=== PATIENT | male | born 1960 | race African-American/Black ===

== ENCOUNTER 2022-04-15 12:30 | Inpatient (IN) | payer MEDICAID, OTHER ==
[~2022-04-15] VITALS: Ht 170.2 cm; Wt 225.2 kg
[2022-04-15 14:15] LABS: Basophils # (auto) 0.1 10 ^3/uL (0-0.2); Basophils % (auto) 0.6 % (0.0-2.0); Eosinophils # (auto) 0.2 10 ^3/uL (0-0.8); Eosinophils % (auto) 1.8 % (0.0-7.0); Hematocrit 35.3 % (41.0-53.0); Hemoglobin 11.8 g/dL (13.5-17.5); Lymphocytes # (auto) 1.3 10 ^3/uL (0.4-5.4); Lymphocytes % (auto) 13.3 % (10.0-50.0); Mean Corpuscular Hemoglobin 29.2 pg (28.0-32.0); Mean Corpuscular Hgb Conc. 33.4 g/dL (32.0-36.0); Mean Corpuscular Volume 87.5 fL (80.0-100.0); Monocytes # (auto) 0.6 10 ^3/uL (0-1.3); Monocytes % (auto) 6.2 % (0.0-12.0); Neutrophils # (auto) 7.9 10 ^3/uL (1.6-8.6); Neutrophils % (auto) 78.1 % (37.0-80.0); Red Blood Cells 4.04 10^6/uL (4.5-5.90); Red Cell Distribution Width 14.4 % (11.8-14.3); White Blood Cell 10.1 10^3/uL (4.4-10.8)
[2022-04-15 14:24] LABS: Albumin 2.6 g/dL (3.4-5.0); Calcium 9.1 mg/dL (8.5-10.1); Potassium 4.3 mmol/L (3.5-5.1)
[2022-04-15 14:26] LABS: BUN/Creatinine Ratio 14.7
[2022-04-15 14:29] LABS: Bilirubin, Total 0.3 mg/dL (0.2-1.0); Total Protein 8.2 g/dL (6.4-8.2)
[2022-04-15] MEDS ORDERED: VANCOMYCIN 1GM/250ML 250 ML IV ONE (19:00)
[2022-04-15] MEDS ORDERED: PIPERACILLIN-TAZOB 3.375GM 100 ML IV ONE (19:00)
[2022-04-15] MEDS ORDERED: SODIUM CHLORIDE 0.9% 1,000 ML IV ONE (19:45)
[2022-04-15] MEDS ORDERED: DEXTROSE (50%) 50ML SYRG IV PRN (19:45)
[2022-04-15 19:57] LABS: Cholesterol 156 mg/dL (< 200)
[2022-04-15 20:00] LABS: HDL Cholesterol 45 mg/dL (40-59); LDL Cholesterol 108 mg/dL (< 100); Triglycerides 93 mg/dL (< 150)
[2022-04-15] MEDS: InsuLIN REG 1unit/0.01ml Soln (100units/ml) SC SCH ×2 (23:52→23:58)
[2022-04-15] MEDS: ACCU-CHEK COMFORT CURVE STRIP VI SCH (23:52)
[2022-04-16] MEDS: MORPHINE SULFATE INJ 2 MG/ml SYRG IV PRN (00:27)
[2022-04-16] MEDS: CLINDAMYCIN 300MG IV 50 ML IV SCH ×4 (02:30→22:05)
[2022-04-16 04:54] LABS: Basophils # (auto) 0.1 10 ^3/uL (0-0.2); Basophils % (auto) 1.6 % (0.0-2.0); Eosinophils # (auto) 0.2 10 ^3/uL (0-0.8); Eosinophils % (auto) 2.5 % (0.0-7.0); Hemoglobin 10.8 g/dL (13.5-17.5); Lymphocytes # (auto) 1.3 10 ^3/uL (0.4-5.4); Lymphocytes % (auto) 14.8 % (10.0-50.0); Mean Corpuscular Hemoglobin 28.8 pg (28.0-32.0); Mean Corpuscular Hgb Conc. 32.8 g/dL (32.0-36.0); Mean Corpuscular Volume 87.7 fL (80.0-100.0); Monocytes # (auto) 0.8 10 ^3/uL (0-1.3); Monocytes % (auto) 8.9 % (0.0-12.0); Neutrophils # (auto) 6.3 10 ^3/uL (1.6-8.6); Neutrophils % (auto) 72.2 % (37.0-80.0); Nucleated Red Blood Cells % 0.1 %; Red Blood Cells 3.76 10^6/uL (4.5-5.90); Red Cell Distribution Width 14.4 % (11.8-14.3); White Blood Cell 8.8 10^3/uL (4.4-10.8)
[2022-04-16 05:11] LABS: Potassium 4.2 mmol/L (3.5-5.1)
[2022-04-16 05:15] LABS: Albumin 2.3 g/dL (3.4-5.0); BUN/Creatinine Ratio 16.7; Calcium 8.5 mg/dL (8.5-10.1)
[2022-04-16 05:26] LABS: Bilirubin, Total 0.4 mg/dL (0.2-1.0); Total Protein 7.4 g/dL (6.4-8.2)
[2022-04-16] MEDS: ACCU-CHEK COMFORT CURVE STRIP VI SCH ×4 (07:00→22:13)
[2022-04-16] MEDS ORDERED: ENOXAPARIN SOD 40 MG/0.4 ML SYRINGE SC SCH (10:00)
[2022-04-16] MEDS: cefTRIAXone 1GM/50ML D5W 50 ML IV SCH (10:31)
[2022-04-16] MEDS: InsuLIN REG 1unit/0.01ml Soln (100units/ml) SC SCH ×3 (12:50→22:20)
[2022-04-16 13:01] VITALS: BP 100/59
[2022-04-16] MEDS ORDERED: LISI20TA28 PO (13:42)
[2022-04-16] MEDS ORDERED: FURO1TAB31 PO (13:42)
[2022-04-16] MEDS ORDERED: PERCOT PO (13:42)
[2022-04-16] MEDS ORDERED: ASPI-543 PO (13:50)
[2022-04-16] MEDS ORDERED: METF-370 PO (13:50)
[2022-04-16] MEDS ORDERED: ENOXAPARIN SOD 60 MG/0.6 ML SYRINGE SC ONE (14:15)
[2022-04-16] MEDS: FUROSEMIDE 40 MG TAB PO SCH (18:00)
[2022-04-16 22:00] VITALS: BP 98/51
[2022-04-17] MEDS: MORPHINE SULFATE INJ 2 MG/ml SYRG IV PRN (00:18)
[2022-04-17 05:00] VITALS: BP 105/62
[2022-04-17 06:31] LABS: Hemoglobin 11.6 g/dL (13.5-17.5); Mean Corpuscular Hemoglobin 28.7 pg (28.0-32.0); Red Blood Cells 4.05 10^6/uL (4.5-5.90); White Blood Cell 7.1 10^3/uL (4.4-10.8)
[2022-04-17] MEDS: CLINDAMYCIN 300MG IV 50 ML IV SCH ×3 (06:36→21:57)
[2022-04-17] MEDS: FUROSEMIDE 40 MG TAB PO SCH ×2 (06:36→18:24)
[2022-04-17] MEDS: ACCU-CHEK COMFORT CURVE STRIP VI SCH ×4 (06:36→21:58)
[2022-04-17 06:37] LABS: Basophils # (auto) 0 10 ^3/uL (0-0.2); Basophils % (auto) 0.6 % (0.0-2.0); Eosinophils # (auto) 0.3 10 ^3/uL (0-0.8); Eosinophils % (auto) 3.6 % (0.0-7.0); Hematocrit 35.7 % (41.0-53.0); Lymphocytes # (auto) 1.4 10 ^3/uL (0.4-5.4); Mean Corpuscular Hgb Conc. 32.5 g/dL (32.0-36.0); Mean Corpuscular Volume 88.3 fL (80.0-100.0); Monocytes # (auto) 0.6 10 ^3/uL (0-1.3); Monocytes % (auto) 8.8 % (0.0-12.0); Neutrophils # (auto) 4.7 10 ^3/uL (1.6-8.6); Nucleated Red Blood Cells % 0.1 %; Red Cell Distribution Width 14.8 % (11.8-14.3)
[2022-04-17] MEDS: InsuLIN REG 1unit/0.01ml Soln (100units/ml) SC SCH ×4 (06:42→22:15)
[2022-04-17 06:52] LABS: Calcium 8.3 mg/dL (8.5-10.1); Potassium 4.7 mmol/L (3.5-5.1)
[2022-04-17 06:55] LABS: Bilirubin, Total 0.3 mg/dL (0.2-1.0); Total Protein 7.5 g/dL (6.4-8.2)
[2022-04-17 09:00] VITALS: BP 112/59
[2022-04-17] MEDS ORDERED: ENOXAPARIN SOD 100 MG/1 ML SYRINGE SC SCH (10:00)
[2022-04-17] MEDS: cefTRIAXone 1GM/50ML D5W 50 ML IV SCH (12:18)
[2022-04-17 13:08] VITALS: BP 131/70
[2022-04-17 17:08] VITALS: BP 150/79
[2022-04-17 22:00] VITALS: BP 127/78
[2022-04-18 00:33] LABS: Amphetamine Screen, Urine NEGATIVE (NEGATIVE); Barbiturate Scree,Urine NEGATIVE (NEGATIVE); Benzodiazephine Screen, Urine NEGATIVE (NEGATIVE); Cannabinoid Screen, Urine NEGATIVE (NEGATIVE); Cocaine Screen, Urine NEGATIVE (NEGATIVE); Opiate Scree,Urine NEGATIVE (NEGATIVE); Phencyclidine Screen, Urine NEGATIVE (NEGATIVE)
[2022-04-18 05:00] VITALS: BP 115/80
[2022-04-18] MEDS: ACCU-CHEK COMFORT CURVE STRIP VI SCH ×4 (05:19→21:50)
[2022-04-18] MEDS: FUROSEMIDE 40 MG TAB PO SCH ×2 (05:20→17:30)
[2022-04-18] MEDS: CLINDAMYCIN 300MG IV 50 ML IV SCH ×3 (05:21→21:50)
[2022-04-18] MEDS: InsuLIN REG 1unit/0.01ml Soln (100units/ml) SC SCH ×4 (05:33→22:08)
[2022-04-18 06:45] LABS: Basophils # (auto) 0.1 10 ^3/uL (0-0.2); Basophils % (auto) 0.7 % (0.0-2.0); Eosinophils # (auto) 0.2 10 ^3/uL (0-0.8); Eosinophils % (auto) 2.9 % (0.0-7.0); Hematocrit 32.9 % (41.0-53.0); Hemoglobin 11.2 g/dL (13.5-17.5); Lymphocytes # (auto) 1.5 10 ^3/uL (0.4-5.4); Lymphocytes % (auto) 21.1 % (10.0-50.0); Mean Corpuscular Hemoglobin 29.6 pg (28.0-32.0); Monocytes # (auto) 0.6 10 ^3/uL (0-1.3); Monocytes % (auto) 8.7 % (0.0-12.0); Neutrophils # (auto) 4.6 10 ^3/uL (1.6-8.6); Neutrophils % (auto) 66.6 % (37.0-80.0); Red Blood Cells 3.79 10^6/uL (4.5-5.90); Red Cell Distribution Width 14.6 % (11.8-14.3); White Blood Cell 6.9 10^3/uL (4.4-10.8)
[2022-04-18 06:53] LABS: Albumin 2.4 g/dL (3.4-5.0); Calcium 8.9 mg/dL (8.5-10.1); Magnesium 2.3 mg/dL (1.6-2.6); Potassium 4.2 mmol/L (3.5-5.1)
[2022-04-18 07:11] LABS: Bilirubin, Total 0.2 mg/dL (0.2-1.0); Total Protein 7.6 g/dL (6.4-8.2)
[2022-04-18 09:00] VITALS: BP 144/62
[2022-04-18] MEDS: cefTRIAXone 1GM/50ML D5W 50 ML IV SCH (09:46)
[2022-04-18] MEDS: ENOXAPARIN SOD 40 MG/0.4 ML SYRINGE SC SCH (09:47)
[2022-04-18 13:00] VITALS: BP 119/79
[2022-04-18 17:08] VITALS: BP 112/39
[2022-04-18 22:00] VITALS: BP 121/72
[2022-04-19 05:00] VITALS: BP 131/66
[2022-04-19] MEDS: CLINDAMYCIN 300MG IV 50 ML IV SCH (05:46)
[2022-04-19] MEDS: FUROSEMIDE 40 MG TAB PO SCH (05:46)
[2022-04-19] MEDS: ACCU-CHEK COMFORT CURVE STRIP VI SCH ×2 (05:47→11:56)
[2022-04-19] MEDS: InsuLIN REG 1unit/0.01ml Soln (100units/ml) SC SCH ×2 (06:15→12:01)
[2022-04-19 07:48] VITALS: BP 142/72
[2022-04-19] MEDS: cefTRIAXone 1GM/50ML D5W 50 ML IV SCH (09:04)
[2022-04-19] MEDS: ENOXAPARIN SOD 40 MG/0.4 ML SYRINGE SC SCH (09:05)
[2022-04-19] MEDS ORDERED: CHOLECALCIFEROL (VITD3) 2,000 UNIT CAP/TAB PO SCH (10:00)
[2022-04-19 12:50] VITALS: BP 143/87
[2022-04-19] MEDS ORDERED: CHOL20007 PO (13:37)
[2022-04-19] MEDS ORDERED: LEVO500T31 PO (13:37)
[2022-04-19 14:31] VITALS: BP 142/72
== END 2022-04-19 15:05 | disposition home or self-care (01) | DRG 383 ==
LOC: ER 12:30 → OVERFLOW 19:29 → WEST WING 04-16 08:25
PROVIDERS: ADMIT Registered Nurse; ATTEND Internal Medicine
DX: L03.115 Cellulitis of right lower limb (principal); N17.0 Acute kidney failure with tubular necrosis; J96.01 Acute respiratory failure with hypoxia; E46 Unspecified protein-calorie malnutrition; D63.8 Anemia in other chronic diseases classified elsewhere; E88.09 Other disorders of plasma-protein metabolism, not elsewhere classified; I13.0 Hypertensive heart and chronic kidney disease with heart failure and stage 1 through stage 4 chronic kidney disease, or unspecified chronic kidney disease; I50.32 Chronic diastolic (congestive) heart failure; Z68.45 Body mass index [BMI] 70 or greater, adult; I87.2 Venous insufficiency (chronic) (peripheral); E66.01 Morbid (severe) obesity due to excess calories; E11.65 Type 2 diabetes mellitus with hyperglycemia; J44.9 Chronic obstructive pulmonary disease, unspecified; J45.909 Unspecified asthma, uncomplicated; M19.90 Unspecified osteoarthritis, unspecified site; E11.22 Type 2 diabetes mellitus with diabetic chronic kidney disease; N18.9 Chronic kidney disease, unspecified; E55.9 Vitamin D deficiency, unspecified; F17.200 Nicotine dependence, unspecified, uncomplicated; L02.415 Cutaneous abscess of right lower limb; G47.33 Obstructive sleep apnea (adult) (pediatric); Z83.3 Family history of diabetes mellitus; Z79.84 Long term (current) use of oral hypoglycemic drugs
CPT/HCPCS: 36415; 71045; 76881; 80053; 80061; 80307; 82306; 82962; 83036; 83605; 83735; 83880; 84443; 85025; 85652; 86141; 87040; 87077; 87186; 87205; 93306; 93971; 96365; 96368; G0378; J0696; J1815; J2543; J3490

== ENCOUNTER 2023-02-02 23:12 | Inpatient (IN) | payer MEDICAID ==
[~2023-02-02] VITALS: Ht 170.2 cm; Wt 240.4 kg
[~2023-02-02 23:12] MED LIST: ASPI-543 PO; FURO1TAB31 PO; LEVO500T31 PO; LISI20TA28 PO; METF-370 PO; PERCOT PO
[2023-02-03 00:56] LABS: Urine Bacteria NONE SEEN /hpf (None Seen); Urine Blood Negative /uL (Negative); Urine Specific Gravity 1.018 (1.001-1.035); Urine WBC 4 /hpf (0 - 3)
[2023-02-03 06:22] LABS: Basophils # (auto) 0 10 ^3/uL (0-0.2); Basophils % (auto) 0.7 % (0.0-2.0); Eosinophils # (auto) 0.3 10 ^3/uL (0-0.8); Eosinophils % (auto) 5.3 % (0.0-7.0); Hemoglobin 12.8 g/dL (13.5-17.5); Lymphocytes # (auto) 1.5 10 ^3/uL (0.4-5.4); Lymphocytes % (auto) 27.7 % (10.0-50.0); Mean Corpuscular Hgb Conc. 32.8 g/dL (32.0-36.0); Mean Corpuscular Volume 88.4 fL (80.0-100.0); Monocytes # (auto) 0.5 10 ^3/uL (0-1.3); Monocytes % (auto) 9.3 % (0.0-12.0); Neutrophils # (auto) 3.1 10 ^3/uL (1.6-8.6); Nucleated Red Blood Cells % 0.2 %; Red Blood Cells 4.41 10^6/uL (4.5-5.90); Red Cell Distribution Width 15.1 % (11.8-14.3); White Blood Cell 5.5 10^3/uL (4.4-10.8)
[2023-02-03 06:40] LABS: Potassium 3.9 mmol/L (3.5-5.1)
[2023-02-03 06:55] LABS: Albumin 2.7 g/dL (3.4-5.0); BUN/Creatinine Ratio 15.6 (10.0-20.0); Bilirubin, Total 0.2 mg/dL (0.2-1.0); Calcium 8.5 mg/dL (8.5-10.1); Total Protein 7.2 g/dL (6.4-8.2)
[2023-02-03] MEDS ORDERED: ACETAMINOPHEN 325 MG TAB PO PRN (10:00)
[2023-02-03] MEDS ORDERED: HYDROcodone-ACET 5/325MG TAB PO PRN (10:00)
[2023-02-03] MEDS ORDERED: MORPHINE SULFATE INJ 2 MG/ml SYRG IV PRN (10:00)
[2023-02-03] MEDS ORDERED: DEXTROSE (50%) 50ML SYRG IV PRN (10:00)
[2023-02-03] MEDS ORDERED: NICOTINE 7MG/24HR TOPICAL PATCH TD ONE (10:15)
[2023-02-03] MEDS ORDERED: ALBUTEROL SULF 2.5 MG/0.5ML(0.5%) NEB SOLN NEB PRN (10:15)
[2023-02-03] MEDS ORDERED: PANTOPRAZOLE 40 MG/10 ML VIAL INJ IV ONE (10:15)
[2023-02-03] MEDS ORDERED: IPRATROPIUM BROM 0.5 MG/2.5ML INH SOL NEB PRN (10:15)
[2023-02-03 10:20] VITALS: BP 127/74
[2023-02-03 10:35] LABS: Cholesterol 138 mg/dL (< 200); Triglycerides 82 mg/dL (< 150)
[2023-02-03 10:37] LABS: HDL Cholesterol 46 mg/dL (40-59); LDL Cholesterol 89 mg/dL (< 100)
[2023-02-03] MEDS: ALBUTEROL SULF 2.5 MG/0.5ML(0.5%) NEB SOLN NEB SCH ×2 (11:01→18:40)
[2023-02-03] MEDS: IPRATROPIUM BROM 0.5 MG/2.5ML INH SOL NEB SCH ×2 (11:01→18:40)
[2023-02-03 11:11] LABS: Alcohol, Urine < 3.0 mg/dL (0-10); Amphetamine Screen, Urine NEGATIVE (NEGATIVE); Barbiturate Scree,Urine NEGATIVE (NEGATIVE); Benzodiazephine Screen, Urine NEGATIVE (NEGATIVE); Cannabinoid Screen, Urine NEGATIVE (NEGATIVE); Cocaine Screen, Urine NEGATIVE (NEGATIVE); Opiate Scree,Urine NEGATIVE (NEGATIVE); Phencyclidine Screen, Urine NEGATIVE (NEGATIVE)
[2023-02-03] MEDS: ACCU-CHEK COMFORT CURVE STRIP VI SCH ×3 (12:59→22:16)
[2023-02-03] MEDS: InsuLIN REG 1unit/0.01ml Soln (100units/ml) SC SCH ×3 (12:59→22:00)
[2023-02-03] MEDS: SODIUM CHLORIDE 0.9% 1,000 ML IV SCH ×3 (20:00→23:44)
[2023-02-03] MEDS: ENOXAPARIN SOD 60 MG/0.6 ML SYRINGE SC SCH (22:25)
[2023-02-04] MEDS ORDERED: hydrALAZINE HCL 20 MG/ML VL IV PRN (00:30)
[2023-02-04 05:18] LABS: Basophils # (auto) 0 10 ^3/uL (0-0.2); Basophils % (auto) 0.4 % (0.0-2.0); Eosinophils # (auto) 0.3 10 ^3/uL (0-0.8); Hematocrit 36.3 % (41.0-53.0); Hemoglobin 11.7 g/dL (13.5-17.5); Lymphocytes # (auto) 1.4 10 ^3/uL (0.4-5.4); Lymphocytes % (auto) 26.5 % (10.0-50.0); Mean Corpuscular Hemoglobin 28.8 pg (28.0-32.0); Mean Corpuscular Hgb Conc. 32.4 g/dL (32.0-36.0); Mean Corpuscular Volume 88.9 fL (80.0-100.0); Monocytes # (auto) 0.5 10 ^3/uL (0-1.3); Monocytes % (auto) 9.7 % (0.0-12.0); Neutrophils # (auto) 3.1 10 ^3/uL (1.6-8.6); Neutrophils % (auto) 58.4 % (37.0-80.0); Red Blood Cells 4.08 10^6/uL (4.5-5.90); White Blood Cell 5.3 10^3/uL (4.4-10.8)
[2023-02-04 05:39] LABS: Albumin 2.4 g/dL (3.4-5.0); BUN/Creatinine Ratio 13.8 (10.0-20.0); Bilirubin, Total 0.2 mg/dL (0.2-1.0); Total Protein 6.5 g/dL (6.4-8.2)
[2023-02-04] MEDS: ACCU-CHEK COMFORT CURVE STRIP VI SCH ×2 (06:48→11:44)
[2023-02-04] MEDS: InsuLIN REG 1unit/0.01ml Soln (100units/ml) SC SCH ×2 (06:58→11:30)
[2023-02-04] MEDS: ALBUTEROL SULF 2.5 MG/0.5ML(0.5%) NEB SOLN NEB SCH ×2 (07:06→12:20)
[2023-02-04] MEDS: IPRATROPIUM BROM 0.5 MG/2.5ML INH SOL NEB SCH ×2 (07:06→12:20)
[2023-02-04] MEDS: SODIUM CHLORIDE 0.9% 1,000 ML IV SCH (07:34)
[2023-02-04] MEDS ORDERED: PANTOPRAZOLE 40 MG/10 ML VIAL INJ IV SCH (10:00)
[2023-02-04] MEDS ORDERED: LISINOPRIL 20 MG TAB PO SCH (10:00)
[2023-02-04] MEDS ORDERED: ASPirin-EC 81 mg tab PO SCH (10:00)
[2023-02-04] MEDS ORDERED: NICOTINE 7MG/24HR TOPICAL PATCH TD SCH (10:00)
[2023-02-04] MEDS ORDERED: FUROSEMIDE 40 MG TAB PO SCH (10:00)
[2023-02-04] MEDS: ENOXAPARIN SOD 60 MG/0.6 ML SYRINGE SC SCH (10:41)
[2023-02-04 13:47] VITALS: BP 149/79
[2023-02-06 11:06] LABS: RPR Non Reactive (Non Reactive)
== END 2023-02-04 13:49 | disposition home or self-care (01) | DRG 815 ==
LOC: ER 23:12 → OVERFLOW 02-03 10:03
PROVIDERS: ADMIT Registered Nurse; ATTEND Registered Nurse
DX: S39.848A Other specified injuries of external genitals, initial encounter (principal); Z68.45 Body mass index [BMI] 70 or greater, adult; E11.9 Type 2 diabetes mellitus without complications; F17.210 Nicotine dependence, cigarettes, uncomplicated; I10 Essential (primary) hypertension; N48.5 Ulcer of penis; E66.01 Morbid (severe) obesity due to excess calories; Z20.822 Contact with and (suspected) exposure to COVID-19; J44.9 Chronic obstructive pulmonary disease, unspecified; Z83.3 Family history of diabetes mellitus
CPT/HCPCS: 36415; 80053; 80061; 80307; 81001; 82962; 83036; 84443; 85025; 86592; 87040; 87077; 87186; 87205; 87426; 94640; 96361; 96372; 96374; 96375; 96376; C9113; G0378; J1815

== ENCOUNTER 2024-07-21 15:53 | Inpatient (IN) | payer MEDICARE, MEDICAID ==
[~2024-07-21] VITALS: Ht 172.7 cm; Wt 195.0 kg
[~2024-07-21 15:53] MED LIST changes: +DULA1INJ SC; -LISI20TA28 PO; +LISI20TA56 PO; +SPIR25TA8 PO
[2024-07-21 16:57] LABS: Basophils # (auto) 0 10 ^3/uL (0-0.2); Basophils % (auto) 0.4 % (0.0-2.0); Eosinophils # (auto) 0.3 10 ^3/uL (0-0.8); Hematocrit 36.1 % (41.0-53.0); Hemoglobin 12.1 g/dL (13.5-17.5); Lymphocytes # (auto) 1.2 10 ^3/uL (0.4-5.4); Lymphocytes % (auto) 13.6 % (10.0-50.0); Mean Corpuscular Hemoglobin 30.6 pg (28.0-32.0); Mean Corpuscular Hgb Conc. 33.6 g/dL (32.0-36.0); Monocytes # (auto) 0.6 10 ^3/uL (0-1.3); Monocytes % (auto) 7.1 % (0.0-12.0); Neutrophils # (auto) 6.8 10 ^3/uL (1.6-8.6); Neutrophils % (auto) 75.9 % (37.0-80.0); Platelet Count (auto) 278 10^3/uL (140-450); Red Blood Cells 3.97 10^6/uL (4.5-5.90); White Blood Cell 8.9 10^3/uL (4.4-10.8)
[2024-07-21 17:13] LABS: Alanine Aminotransferase 16 U/L (7-40); Alkaline Phosphatase 104 U/L (46-116); Anion Gap 8 (5-15); Aspartate Aminotransferase 13 U/L (13-40); BUN/Creatinine Ratio 10.6 (10.0-20.0); Bilirubin, Total 0.5 mg/dL (0.2-1.0); Blood Urea Nitrogen 28 mg/dL (9-23); Calcium 9.1 mg/dL (8.7-10.4); Carbon Dioxide 24 mmol/L (20-30); Chloride 110 mmol/L (98-107); Glucose 120 mg/dL (74-106); Potassium 3.7 mmol/L (3.5-5.1); Sodium 142 mmol/L (136-145)
[2024-07-21 17:19] VITALS: PULSE 86; RESP 22; O2SAT 93
[2024-07-21] MEDS: FUROSEMIDE 100 MG/10ML VIAL IV ONE (17:49)
[2024-07-21 18:25] LABS: Urine Bacteria None Seen /hpf (None Seen)
[2024-07-21 18:28] LABS: Erythrocyte Sedimentation Rate 91 mm/hr (0-20)
[2024-07-21 18:48] LABS: Urine Blood Negative /uL (Negative); Urine Clarity Turbid (Clear); Urine Color Yellow (Yellow); Urine Hyaline Cast MOD /lpf (0 - 2); Urine Mucus FEW (None Seen); Urine Protein, UAD TRACE (Negative); Urine Specific Gravity 1.017 (1.001-1.035); Urine Urobilinogen 4 mg/dL (Negative); Urine WBC 37 /hpf (0 - 3); Urine pH 5.5 (5.0-9.0)
[2024-07-21 19:30] VITALS: PULSE 88; RESP 20; O2SAT 96
[2024-07-21] MEDS ORDERED: ACETAMINOPHEN 325 MG TAB PO PRN (21:00)
[2024-07-21] MEDS ORDERED: ONDANSETRON HCL 4 MG/2 ML VIAL IV PRN (21:00)
[2024-07-21] MEDS ORDERED: HYDROcodone-ACET 5/325MG TAB PO PRN (21:00)
[2024-07-21] MEDS ORDERED: DEXTROSE (50%) 50ML SYRG IV PRN (21:00)
[2024-07-21] MEDS ORDERED: DOCUSATE SOD 100 MG CAP PO PRN (21:00)
[2024-07-21] MEDS ORDERED: MORPHINE SULFATE INJ 2 MG/ml SYRG IV PRN (21:30)
[2024-07-21] MEDS ORDERED: NITROGLYCERIN 0.4 MG SL TAB SL PRN (21:30)
[2024-07-21] MEDS: SODIUM CHLOR 0.9% PF (SALINE LOCK) 10ML VIAL/SYR IV SCH (21:42)
[2024-07-21] MEDS: ACCU-CHEK COMFORT CURVE STRIP VI SCH (21:43)
[2024-07-21] MEDS: InsuLIN REG 1unit/0.01ml Soln (100units/ml) SC SCH (21:44)
[2024-07-21] MEDS: MIDODRINE HCL 10 MG TAB PO ONE (21:49)
[2024-07-21] MEDS: CLINDAMYCIN 900MG IV 50 ML IV ONE (21:57)
[2024-07-21] MEDS: cefTRIAXone 1GM/50ML D5W 50 ML IV ONE (22:18)
[2024-07-22 04:20] LABS: Basophils # (auto) 0 10 ^3/uL (0-0.2); Basophils % (auto) 0.4 % (0.0-2.0); Eosinophils # (auto) 0.2 10 ^3/uL (0-0.8); Eosinophils % (auto) 2.9 % (0.0-7.0); Hemoglobin 11.2 g/dL (13.5-17.5); Lymphocytes # (auto) 1.4 10 ^3/uL (0.4-5.4); Lymphocytes % (auto) 17.1 % (10.0-50.0); Mean Corpuscular Hemoglobin 30.7 pg (28.0-32.0); Mean Corpuscular Hgb Conc. 33.1 g/dL (32.0-36.0); Mean Corpuscular Volume 92.9 fL (80.0-100.0); Monocytes # (auto) 0.7 10 ^3/uL (0-1.3); Monocytes % (auto) 8.3 % (0.0-12.0); Neutrophils # (auto) 5.9 10 ^3/uL (1.6-8.6); Neutrophils % (auto) 71.3 % (37.0-80.0); Platelet Count (auto) 235 10^3/uL (140-450); Red Blood Cells 3.66 10^6/uL (4.5-5.90); Red Cell Distribution Width 14.9 % (11.8-14.3); White Blood Cell 8.2 10^3/uL (4.4-10.8)
[2024-07-22 04:38] LABS: Alanine Aminotransferase 12 U/L (7-40); Albumin 3.7 g/dL (3.2-4.8); Alkaline Phosphatase 101 U/L (46-116); Anion Gap 7 (5-15); Aspartate Aminotransferase 11 U/L (13-40); BUN/Creatinine Ratio 10.5 (10.0-20.0); Bilirubin, Total 0.2 mg/dL (0.2-1.0); Blood Urea Nitrogen 25 mg/dL (9-23); Calcium 8.8 mg/dL (8.7-10.4); Carbon Dioxide 22 mmol/L (20-30); Chloride 111 mmol/L (98-107); Glucose 117 mg/dL (74-106); Potassium 4.1 mmol/L (3.5-5.1); Sodium 140 mmol/L (136-145); Total Protein 6.5 g/dL (5.7-8.2)
[2024-07-22] MEDS: InsuLIN REG 1unit/0.01ml Soln (100units/ml) SC SCH ×3 (06:30→22:00)
[2024-07-22] MEDS ORDERED: DEXTROSE (50%) 50ML SYRG IV PRN (08:15)
[2024-07-22 08:47] LABS: Magnesium 2.1 mg/dL (1.6-2.6)
[2024-07-22 08:48] LABS: Phosphorus 4.4 mg/dL (2.4-5.1)
[2024-07-22 09:00] VITALS: PULSE 70; RESP 19; O2SAT 96
[2024-07-22] MEDS: cefTRIAXone 1GM/50ML D5W 50 ML IV SCH (09:19)
[2024-07-22] MEDS: FUROSEMIDE 40 MG/4 ML VIAL IV SCH (09:26)
[2024-07-22] MEDS ORDERED: FUROSEMIDE 40 MG/4 ML VIAL IV SCH (10:00)
[2024-07-22] MEDS: ASPirin 81 mg TAB PO SCH (10:58)
[2024-07-22 11:33] LABS: COVID19 ANTIGEN SOFIA FIA NEGATIVE (NEGATIVE)
[2024-07-22 11:34] LABS: Rapid Influenza A Negative (Negative); Rapid Influenza B Negative (Negative)
[2024-07-22] MEDS: ACCU-CHEK COMFORT CURVE STRIP VI SCH (11:55)
[2024-07-22] MEDS: ALBUMIN 25% 100 ML IV ONE (13:45)
[2024-07-22 14:09] LABS: Sodium Urine 123 mmol/L (40-220)
[2024-07-22 14:14] LABS: Amphetamine Screen, Urine Neg (NEGATIVE); Protein, Urine 6.1 mg/dL (0.0-11.9)
[2024-07-22 14:16] LABS: Barbiturate Scree,Urine Neg (NEGATIVE); Benzodiazephine Screen, Urine Neg (NEGATIVE); Cannabinoid Screen, Urine Neg (NEGATIVE); Cocaine Screen, Urine Pos (NEGATIVE); Opiate Scree,Urine Neg (NEGATIVE); Phencyclidine Screen, Urine Neg (NEGATIVE); Urine Protein/Creatinine Ratio 0.16
[2024-07-22 19:40] VITALS: PULSE 84; RESP 20; O2SAT 100
[2024-07-22 20:00] VITALS: PULSE 62; RESP 20
[2024-07-22 21:00] VITALS: BP 117/62; PULSE 78; RESP 20; TEMP 97.6; O2SAT 100
[2024-07-22] MEDS: ENOXAPARIN SOD 40 MG/0.4 ML SYRINGE SC SCH (23:00)
[2024-07-23] VITALS (12 sets, daily range): BP systolic 95–120; BP diastolic 44–71; PULSE 61–83; RESP 18–24; TEMP 97.5–98.7; O2SAT 96–100
[2024-07-23] MEDS: HYDROcodone-ACET 5/325MG TAB PO ONE (01:31)
[2024-07-23 08:00] LABS: Basophils # (auto) 0 10 ^3/uL (0-0.2); Basophils % (auto) 0.5 % (0.0-2.0); Eosinophils # (auto) 0.2 10 ^3/uL (0-0.8); Eosinophils % (auto) 3.3 % (0.0-7.0); Hematocrit 34.8 % (41.0-53.0); Hemoglobin 11.8 g/dL (13.5-17.5); Lymphocytes # (auto) 1.4 10 ^3/uL (0.4-5.4); Lymphocytes % (auto) 19.1 % (10.0-50.0); Mean Corpuscular Hemoglobin 30.8 pg (28.0-32.0); Mean Corpuscular Hgb Conc. 33.7 g/dL (32.0-36.0); Mean Corpuscular Volume 91.2 fL (80.0-100.0); Monocytes # (auto) 0.5 10 ^3/uL (0-1.3); Monocytes % (auto) 6.2 % (0.0-12.0); Neutrophils # (auto) 5.3 10 ^3/uL (1.6-8.6); Neutrophils % (auto) 70.9 % (37.0-80.0); Platelet Count (auto) 264 10^3/uL (140-450); Red Blood Cells 3.82 10^6/uL (4.5-5.90); Red Cell Distribution Width 14.4 % (11.8-14.3); White Blood Cell 7.5 10^3/uL (4.4-10.8)
[2024-07-23 08:07] LABS: Anion Gap 6 (5-15); Calcium 9.3 mg/dL (8.7-10.4); Carbon Dioxide 27 mmol/L (20-30); Chloride 111 mmol/L (98-107); Potassium 4.2 mmol/L (3.5-5.1); Sodium 144 mmol/L (136-145)
[2024-07-23 08:13] LABS: BUN/Creatinine Ratio 17.2 (10.0-20.0); Blood Urea Nitrogen 28 mg/dL (9-23); Glucose 113 mg/dL (74-106)
[2024-07-23] MEDS: ALLOPURINOL 100 MG TAB PO SCH (09:10)
[2024-07-23] MEDS ORDERED: IPRATROPIUM BROM 0.5 MG/2.5ML INH SOL NEB PRN (16:15)
[2024-07-23] MEDS ORDERED: ALBUTEROL SULF 2.5 MG/0.5ML(0.5%) NEB SOLN NEB PRN (16:15)
[2024-07-23 16:31] LABS: Triglycerides 96 mg/dL (< 150)
[2024-07-23 16:32] LABS: LDL Cholesterol 102 mg/dL (< 100)
[2024-07-23 16:33] LABS: Cholesterol 152 mg/dL (< 200); HDL Cholesterol 34 mg/dL (40-59)
[2024-07-23] MEDS: metFORMIN HYDROCHLORIDE 500 MG TAB PO SCH (17:28)
[2024-07-23] MEDS: FUROSEMIDE 40 MG/4 ML VIAL IV ONE (17:29)
[2024-07-23] MEDS: NYSTATIN TOPICAL POWDER 15GM TOP SCH (22:03)
[2024-07-24] VITALS (12 sets, daily range): BP systolic 95–147; BP diastolic 48–75; PULSE 75–93; RESP 16–20; TEMP 97.4–98.3; O2SAT 93–98
[2024-07-24 06:30] LABS: Chloride 107 mmol/L (98-107); Sodium 141 mmol/L (136-145)
[2024-07-24 06:31] LABS: Anion Gap 8 (5-15); Calcium 9.2 mg/dL (8.7-10.4); Carbon Dioxide 26 mmol/L (20-30)
[2024-07-24 06:36] LABS: BUN/Creatinine Ratio 19.5 (10.0-20.0); Blood Urea Nitrogen 26 mg/dL (9-23)
[2024-07-24 06:43] LABS: Glucose 102 mg/dL (74-106)
[2024-07-24 07:01] LABS: Basophils # (auto) 0 10 ^3/uL (0-0.2); Basophils % (auto) 0.3 % (0.0-2.0); Eosinophils # (auto) 0.2 10 ^3/uL (0-0.8); Eosinophils % (auto) 2.9 % (0.0-7.0); Hematocrit 33.8 % (41.0-53.0); Hemoglobin 11.6 g/dL (13.5-17.5); Lymphocytes # (auto) 1.6 10 ^3/uL (0.4-5.4); Lymphocytes % (auto) 19.6 % (10.0-50.0); Mean Corpuscular Hgb Conc. 34.3 g/dL (32.0-36.0); Mean Corpuscular Volume 90.4 fL (80.0-100.0); Monocytes # (auto) 0.6 10 ^3/uL (0-1.3); Monocytes % (auto) 7.3 % (0.0-12.0); Neutrophils # (auto) 5.7 10 ^3/uL (1.6-8.6); Neutrophils % (auto) 69.9 % (37.0-80.0); Platelet Count (auto) 266 10^3/uL (140-450); Red Blood Cells 3.74 10^6/uL (4.5-5.90); Red Cell Distribution Width 14.4 % (11.8-14.3); White Blood Cell 8.2 10^3/uL (4.4-10.8)
[2024-07-24] MEDS: FUROSEMIDE 40 MG/4 ML VIAL IV SCH (12:55)
[2024-07-25] VITALS (10 sets, daily range): BP systolic 100–135; BP diastolic 64–97; PULSE 73–87; RESP 18–21; TEMP 98.1–98.9; O2SAT 92–97
[2024-07-25 06:39] LABS: Chloride 105 mmol/L (98-107); Potassium 3.7 mmol/L (3.5-5.1); Sodium 138 mmol/L (136-145)
[2024-07-25 06:40] LABS: Anion Gap 5 (5-15); Calcium 9.2 mg/dL (8.7-10.4); Carbon Dioxide 28 mmol/L (20-30)
[2024-07-25 06:45] LABS: Blood Urea Nitrogen 23 mg/dL (9-23); Glucose 112 mg/dL (74-106)
[2024-07-25 06:58] LABS: BUN/Creatinine Ratio 17.7 (10.0-20.0)
[2024-07-25] MEDS: cefTRIAXone 1GM/50ML D5W 50 ML IV SCH (14:00)
[2024-07-25] MEDS: FUROSEMIDE 40 MG TAB PO SCH (17:01)
[2024-07-26] VITALS (16 sets, daily range): BP systolic 108–156; BP diastolic 36–90; PULSE 71–88; RESP 15–28; TEMP 97.3–98.8; O2SAT 93–100
[2024-07-26 05:56] LABS: Basophils # (auto) 0 10 ^3/uL (0-0.2); Basophils % (auto) 0.5 % (0.0-2.0); Eosinophils # (auto) 0.3 10 ^3/uL (0-0.8); Eosinophils % (auto) 2.5 % (0.0-7.0); Hematocrit 34.3 % (41.0-53.0); Hemoglobin 11.7 g/dL (13.5-17.5); Lymphocytes # (auto) 1.9 10 ^3/uL (0.4-5.4); Lymphocytes % (auto) 17.9 % (10.0-50.0); Mean Corpuscular Hemoglobin 30.7 pg (28.0-32.0); Mean Corpuscular Hgb Conc. 34.1 g/dL (32.0-36.0); Monocytes # (auto) 0.9 10 ^3/uL (0-1.3); Monocytes % (auto) 8.2 % (0.0-12.0); Neutrophils # (auto) 7.7 10 ^3/uL (1.6-8.6); Neutrophils % (auto) 70.9 % (37.0-80.0); Platelet Count (auto) 270 10^3/uL (140-450); Red Blood Cells 3.81 10^6/uL (4.5-5.90); Red Cell Distribution Width 14.1 % (11.8-14.3); White Blood Cell 10.8 10^3/uL (4.4-10.8)
[2024-07-26 06:11] LABS: Chloride 102 mmol/L (98-107); Potassium 3.8 mmol/L (3.5-5.1); Sodium 136 mmol/L (136-145)
[2024-07-26 06:12] LABS: Anion Gap 7 (5-15); Calcium 9.2 mg/dL (8.7-10.4); Carbon Dioxide 27 mmol/L (20-30)
[2024-07-26 06:17] LABS: BUN/Creatinine Ratio 17.6 (10.0-20.0); Blood Urea Nitrogen 24 mg/dL (9-23); Glucose 119 mg/dL (74-106)
[2024-07-26] MEDS ORDERED: ATROPINE SULFATE 0.4 MG/1 ML VIAL IV PRN (21:45)
[2024-07-27] VITALS (27 sets, daily range): BP systolic 97–134; BP diastolic 44–69; PULSE 67–83; RESP 11–30; TEMP 98.2–98.7; O2SAT 94–100
[2024-07-27 05:14] LABS: Basophils # (auto) 0.1 10 ^3/uL (0-0.2); Basophils % (auto) 0.6 % (0.0-2.0); Eosinophils # (auto) 0.3 10 ^3/uL (0-0.8); Eosinophils % (auto) 3.5 % (0.0-7.0); Lymphocytes # (auto) 1.6 10 ^3/uL (0.4-5.4); Lymphocytes % (auto) 18.3 % (10.0-50.0); Mean Corpuscular Hgb Conc. 34.2 g/dL (32.0-36.0); Mean Corpuscular Volume 90.7 fL (80.0-100.0); Monocytes # (auto) 0.7 10 ^3/uL (0-1.3); Monocytes % (auto) 8.3 % (0.0-12.0); Neutrophils # (auto) 5.9 10 ^3/uL (1.6-8.6); Neutrophils % (auto) 69.3 % (37.0-80.0); Platelet Count (auto) 256 10^3/uL (140-450); Red Blood Cells 3.53 10^6/uL (4.5-5.90); White Blood Cell 8.5 10^3/uL (4.4-10.8)
[2024-07-27 05:24] LABS: Chloride 103 mmol/L (98-107); Potassium 4.3 mmol/L (3.5-5.1); Sodium 138 mmol/L (136-145)
[2024-07-27 05:25] LABS: Anion Gap 11 (5-15); Calcium 8.9 mg/dL (8.7-10.4); Carbon Dioxide 24 mmol/L (20-30)
[2024-07-27 05:30] LABS: BUN/Creatinine Ratio 18.3 (10.0-20.0); Blood Urea Nitrogen 23 mg/dL (9-23); Glucose 122 mg/dL (74-106)
[2024-07-27] MEDS ORDERED: FUROSEMIDE 40 MG/4 ML VIAL IV PRN (11:45)
[2024-07-27] MEDS ORDERED: ATROPINE SULFATE 0.4 MG/1 ML VIAL IV PRN (13:30)
[2024-07-28] VITALS (21 sets, daily range): BP systolic 98–118; BP diastolic 44–62; PULSE 67–82; RESP 14–30; TEMP 98.1–98.9; O2SAT 90–100
[2024-07-28 05:25] LABS: Chloride 103 mmol/L (98-107); Potassium 4.1 mmol/L (3.5-5.1); Sodium 137 mmol/L (136-145)
[2024-07-28 05:26] LABS: Anion Gap 5 (5-15); Calcium 8.8 mg/dL (8.7-10.4); Carbon Dioxide 29 mmol/L (20-30)
[2024-07-28 05:31] LABS: BUN/Creatinine Ratio 17.6 (10.0-20.0); Blood Urea Nitrogen 24 mg/dL (9-23); Glucose 127 mg/dL (74-106)
[2024-07-28 14:12] LABS: Magnesium 1.9 mg/dL (1.6-2.6)
[2024-07-28 14:14] LABS: Phosphorus 3.4 mg/dL (2.4-5.1)
[2024-07-29] VITALS (12 sets, daily range): BP systolic 96–135; BP diastolic 45–83; PULSE 69–85; RESP 17–20; TEMP 98–98.6; O2SAT 95–100
[2024-07-29 04:34] LABS: Chloride 102 mmol/L (98-107); Potassium 4.4 mmol/L (3.5-5.1); Sodium 137 mmol/L (136-145)
[2024-07-29 04:35] LABS: Anion Gap 5 (5-15); Calcium 8.8 mg/dL (8.7-10.4); Carbon Dioxide 30 mmol/L (20-30)
[2024-07-29 04:36] LABS: Basophils # (auto) 0 10 ^3/uL (0-0.2); Basophils % (auto) 0.5 % (0.0-2.0); Eosinophils # (auto) 0.3 10 ^3/uL (0-0.8); Eosinophils % (auto) 3.7 % (0.0-7.0); Hematocrit 33.6 % (41.0-53.0); Hemoglobin 11.5 g/dL (13.5-17.5); Lymphocytes # (auto) 2.2 10 ^3/uL (0.4-5.4); Lymphocytes % (auto) 24.1 % (10.0-50.0); Mean Corpuscular Hemoglobin 30.8 pg (28.0-32.0); Mean Corpuscular Hgb Conc. 34.1 g/dL (32.0-36.0); Mean Corpuscular Volume 90.3 fL (80.0-100.0); Monocytes # (auto) 0.6 10 ^3/uL (0-1.3); Neutrophils # (auto) 5.9 10 ^3/uL (1.6-8.6); Neutrophils % (auto) 64.7 % (37.0-80.0); Platelet Count (auto) 295 10^3/uL (140-450); Red Blood Cells 3.73 10^6/uL (4.5-5.90); Red Cell Distribution Width 13.7 % (11.8-14.3); White Blood Cell 9.2 10^3/uL (4.4-10.8)
[2024-07-29 04:40] LABS: BUN/Creatinine Ratio 19.8 (10.0-20.0); Blood Urea Nitrogen 25 mg/dL (9-23); Glucose 111 mg/dL (74-106)
[2024-07-29 15:20] LABS: Urine Bacteria None Seen /hpf (None Seen)
[2024-07-29 15:30] LABS: Urine Blood 2+ /uL (Negative); Urine Clarity Clear (Clear); Urine Color Light-Yellow (Yellow); Urine Mucus FEW (None Seen); Urine Protein, UAD 1+ (Negative); Urine Specific Gravity 1.017 (1.001-1.035); Urine Urobilinogen Normal (Negative); Urine WBC 5 /hpf (0 - 3); Urine pH 6.5 (5.0-9.0)
[2024-07-30] VITALS (11 sets, daily range): BP systolic 101–132; BP diastolic 47–74; PULSE 69–89; RESP 18–20; TEMP 97.5–98.1; O2SAT 96–99
[2024-07-30 06:32] LABS: Basophils # (auto) 0.1 10 ^3/uL (0-0.2); Basophils % (auto) 0.5 % (0.0-2.0); Eosinophils # (auto) 0.3 10 ^3/uL (0-0.8); Hemoglobin 11.4 g/dL (13.5-17.5); Lymphocytes # (auto) 1.9 10 ^3/uL (0.4-5.4); Lymphocytes % (auto) 19.3 % (10.0-50.0); Mean Corpuscular Hemoglobin 30.9 pg (28.0-32.0); Mean Corpuscular Hgb Conc. 34.4 g/dL (32.0-36.0); Mean Corpuscular Volume 89.8 fL (80.0-100.0); Monocytes # (auto) 0.6 10 ^3/uL (0-1.3); Monocytes % (auto) 6.2 % (0.0-12.0); Neutrophils # (auto) 6.9 10 ^3/uL (1.6-8.6); Platelet Count (auto) 290 10^3/uL (140-450); Red Blood Cells 3.68 10^6/uL (4.5-5.90); Red Cell Distribution Width 13.7 % (11.8-14.3); White Blood Cell 9.8 10^3/uL (4.4-10.8)
[2024-07-30 06:35] LABS: Chloride 102 mmol/L (98-107); Potassium 4.2 mmol/L (3.5-5.1); Sodium 136 mmol/L (136-145)
[2024-07-30 06:36] LABS: Anion Gap 7 (5-15); Carbon Dioxide 27 mmol/L (20-30)
[2024-07-30 06:37] LABS: Calcium 9.1 mg/dL (8.7-10.4)
[2024-07-30 06:41] LABS: BUN/Creatinine Ratio 18.1 (10.0-20.0); Blood Urea Nitrogen 23 mg/dL (9-23); Glucose 105 mg/dL (74-106)
[2024-07-30 06:51] LABS: INR 1.12 (0.9-1.15); Partial Thromboplastin Time 31.6 SEC (24.5-34.5); Prothrombin Time 11.8 sec (9.3-11.8)
[2024-07-30] MEDS: ATORVASTATIN 20 MG TAB PO SCH (21:56)
[2024-07-31] VITALS (20 sets, daily range): BP systolic 112–145; BP diastolic 55–86; PULSE 66–87; RESP 14–21; TEMP 96.2–98.2; O2SAT 90–100
[2024-07-31 09:30] LABS: Basophils # (auto) 0.1 10 ^3/uL (0-0.2); Basophils % (auto) 0.8 % (0.0-2.0); Eosinophils # (auto) 0.3 10 ^3/uL (0-0.8); Hematocrit 33.3 % (41.0-53.0); Hemoglobin 11.4 g/dL (13.5-17.5); Lymphocytes # (auto) 2.1 10 ^3/uL (0.4-5.4); Lymphocytes % (auto) 18.9 % (10.0-50.0); Mean Corpuscular Hemoglobin 31.1 pg (28.0-32.0); Mean Corpuscular Hgb Conc. 34.3 g/dL (32.0-36.0); Mean Corpuscular Volume 90.6 fL (80.0-100.0); Monocytes # (auto) 0.8 10 ^3/uL (0-1.3); Monocytes % (auto) 7.4 % (0.0-12.0); Neutrophils # (auto) 7.8 10 ^3/uL (1.6-8.6); Neutrophils % (auto) 69.9 % (37.0-80.0); Platelet Count (auto) 292 10^3/uL (140-450); Red Blood Cells 3.68 10^6/uL (4.5-5.90); White Blood Cell 11.1 10^3/uL (4.4-10.8)
[2024-07-31 09:32] LABS: Anion Gap 5 (5-15); Carbon Dioxide 29 mmol/L (20-30); Chloride 102 mmol/L (98-107); Potassium 4.5 mmol/L (3.5-5.1); Sodium 136 mmol/L (136-145)
[2024-07-31 09:33] LABS: Calcium 9.2 mg/dL (8.7-10.4)
[2024-07-31 09:38] LABS: BUN/Creatinine Ratio 17.6 (10.0-20.0); Blood Urea Nitrogen 24 mg/dL (9-23); Glucose 115 mg/dL (74-106)
[2024-07-31] MEDS: MIDAZOLAM HCL 2MG/2ML 2ml VIAL (1mg/ml) ONE (13:50)
[2024-07-31] MEDS: fentaNYL CITRATE 100 MCG/2 ML VL ONE (13:50)
[2024-07-31] MEDS: VANCOMYCIN 1GM/200ML 200 ML IV ONE (13:50)
[2024-07-31] MEDS: VANCOMYCIN HCL 1000 MG VL ONE ×2 (13:50)
[2024-07-31] MEDS: LIDOCAINE 2%HCL (LOCAL ANESTH.) INJ 20ML MDV ONE (13:50)
[2024-07-31] MEDS: HYDROcodone-ACET 5/325MG TAB PO PRN (21:59)
[2024-07-31] MEDS: VANCOMYCIN 1GM/200ML 200 ML IV SCH (22:00)
[2024-08-01] VITALS (14 sets, daily range): BP systolic 97–131; BP diastolic 36–80; PULSE 68–84; RESP 11–20; TEMP 97.4–98.8; O2SAT 95–100
[2024-08-01] MEDS: VANCOMYCIN HCL 1000 MG VL ONE ×2 (13:10→14:08)
[2024-08-01] MEDS: MIDAZOLAM HCL 2MG/2ML 2ml VIAL (1mg/ml) ONE (13:11)
[2024-08-01] MEDS: fentaNYL CITRATE 100 MCG/2 ML VL ONE (13:11)
[2024-08-01] MEDS: VANCOMYCIN 1GM/200ML 200 ML IV ONE (13:11)
[2024-08-01] MEDS: LIDOCAINE 2%HCL (LOCAL ANESTH.) INJ 20ML MDV ONE (13:26)
[2024-08-01] MEDS ORDERED: fentaNYL CITRATE 100 MCG/2 ML VL ONE (14:25)
[2024-08-01] MEDS ORDERED: MIDAZOLAM HCL 2MG/2ML 2ml VIAL (1mg/ml) ONE (14:25)
[2024-08-01] MEDS: VANCOMYCIN 1GM/200ML 200 ML IV SCH (21:21)
[2024-08-02] VITALS (12 sets, daily range): BP systolic 105–130; BP diastolic 55–87; PULSE 60–80; RESP 12–22; TEMP 97.7–98.7; O2SAT 94–100
[2024-08-02] MEDS: VANCOMYCIN 1GM/200ML 0 ML IV ONE (21:06)
[2024-08-03] VITALS (10 sets, daily range): BP systolic 101–137; BP diastolic 61–74; PULSE 66–93; RESP 16–22; TEMP 97.8–98.7; O2SAT 94–100
[2024-08-03 05:49] LABS: Basophils # (auto) 0 10 ^3/uL (0-0.2); Basophils % (auto) 0.5 % (0.0-2.0); Eosinophils # (auto) 0.4 10 ^3/uL (0-0.8); Eosinophils % (auto) 4.3 % (0.0-7.0); Hematocrit 32.1 % (41.0-53.0); Hemoglobin 10.9 g/dL (13.5-17.5); Lymphocytes # (auto) 2.1 10 ^3/uL (0.4-5.4); Lymphocytes % (auto) 26.2 % (10.0-50.0); Mean Corpuscular Hemoglobin 30.7 pg (28.0-32.0); Mean Corpuscular Hgb Conc. 34.1 g/dL (32.0-36.0); Monocytes # (auto) 0.6 10 ^3/uL (0-1.3); Monocytes % (auto) 7.1 % (0.0-12.0); Neutrophils % (auto) 61.9 % (37.0-80.0); Nucleated Red Blood Cells % 0.1 %; Platelet Count (auto) 278 10^3/uL (140-450); Red Blood Cells 3.56 10^6/uL (4.5-5.90); Red Cell Distribution Width 13.6 % (11.8-14.3); White Blood Cell 8.1 10^3/uL (4.4-10.8)
[2024-08-03 05:56] LABS: Chloride 106 mmol/L (98-107); Potassium 4.1 mmol/L (3.5-5.1); Sodium 137 mmol/L (136-145)
[2024-08-03 05:57] LABS: Anion Gap 5 (5-15); Carbon Dioxide 26 mmol/L (20-30)
[2024-08-03 06:02] LABS: Glucose 143 mg/dL (74-106)
[2024-08-03 06:03] LABS: BUN/Creatinine Ratio 17.7 (10.0-20.0); Blood Urea Nitrogen 23 mg/dL (9-23)
[2024-08-04] VITALS (7 sets, daily range): BP systolic 107–117; BP diastolic 58–70; PULSE 66–92; RESP 16–20; TEMP 97–98.3; O2SAT 92–98
== END 2024-08-04 14:59 | disposition left against medical advice (07) | DRG 171 ==
LOC: ER 15:53 → TELE 21:31 → TELE-CENTR 07-22 18:23 → DOU IN ICU 07-26 17:52 → TELE-WESTW 07-28 18:25 → WEST WING 08-04 14:27
PROVIDERS: ADMIT Internal Medicine; ATTEND Internal Medicine
PROC: 5A09357 Assistance with Respiratory Ventilation, Less than 24 Consecutive Hours, Continuous Positive Airway Pressure (ICD-10-PCS; 2024-07-23)
PROC: 5A09357 Assistance with Respiratory Ventilation, Less than 24 Consecutive Hours, Continuous Positive Airway Pressure (ICD-10-PCS; 2024-07-24)
PROC: 5A09357 Assistance with Respiratory Ventilation, Less than 24 Consecutive Hours, Continuous Positive Airway Pressure (ICD-10-PCS; 2024-07-26)
PROC: 5A09357 Assistance with Respiratory Ventilation, Less than 24 Consecutive Hours, Continuous Positive Airway Pressure (ICD-10-PCS; 2024-07-27)
PROC: 5A09357 Assistance with Respiratory Ventilation, Less than 24 Consecutive Hours, Continuous Positive Airway Pressure (ICD-10-PCS; 2024-07-28)
PROC: 5A09357 Assistance with Respiratory Ventilation, Less than 24 Consecutive Hours, Continuous Positive Airway Pressure (ICD-10-PCS; 2024-07-30)
PROC: B5171ZZ Fluoroscopy of Left Subclavian Vein using Low Osmolar Contrast (ICD-10-PCS; principal; 2024-07-31)
PROC: 0JH606Z Insertion of Pacemaker, Dual Chamber into Chest Subcutaneous Tissue and Fascia, Open Approach (ICD-10-PCS; 2024-07-31)
PROC: 02H63JZ Insertion of Pacemaker Lead into Right Atrium, Percutaneous Approach (ICD-10-PCS; 2024-07-31)
PROC: 02HK3JZ Insertion of Pacemaker Lead into Right Ventricle, Percutaneous Approach (ICD-10-PCS; 2024-07-31)
PROC: 5A09357 Assistance with Respiratory Ventilation, Less than 24 Consecutive Hours, Continuous Positive Airway Pressure (ICD-10-PCS; 2024-08-01)
PROC: 5A09357 Assistance with Respiratory Ventilation, Less than 24 Consecutive Hours, Continuous Positive Airway Pressure (ICD-10-PCS; 2024-08-02)
DX: I44.1 Atrioventricular block, second degree (principal); N17.0 Acute kidney failure with tubular necrosis; I50.33 Acute on chronic diastolic (congestive) heart failure; L03.115 Cellulitis of right lower limb; I13.0 Hypertensive heart and chronic kidney disease with heart failure and stage 1 through stage 4 chronic kidney disease, or unspecified chronic kidney disease; L03.116 Cellulitis of left lower limb; E11.22 Type 2 diabetes mellitus with diabetic chronic kidney disease; I95.9 Hypotension, unspecified; Z68.44 Body mass index [BMI] 60.0-69.9, adult; Z53.29 Procedure and treatment not carried out because of patient's decision for other reasons; E66.01 Morbid (severe) obesity due to excess calories; F14.10 Cocaine abuse, uncomplicated; N39.0 Urinary tract infection, site not specified; J44.9 Chronic obstructive pulmonary disease, unspecified; N18.2 Chronic kidney disease, stage 2 (mild); M10.9 Gout, unspecified; F12.10 Cannabis abuse, uncomplicated; L30.4 Erythema intertrigo; Z79.899 Other long term (current) drug therapy; Z83.3 Family history of diabetes mellitus; Z79.4 Long term (current) use of insulin
CPT/HCPCS: 33208; 36012; 36415; 71045; 76775; 76881; 76937; 80048; 80053; 80061; 80307; 81001; 82043; 82570; 82962; 83036; 83605; 83735; 83880; 83970; 84100; 84156; 84300; 84443; 84484; 84550; 85025; 85610; 85652; 85730; 86141; 86850; 86900; 86901; 87040; 87081; 87086; 87426; 87804; 93005; 93306; 93925; 93926; 93970; 94660; 97110; 97116; 97163; 97530; 99152; C1785; C1894; G0378; J1815; J2250; J3490; P9047

== ENCOUNTER 2024-08-04 20:28 | Emergency (ER) | payer MEDICARE, MEDICAID ==
[~2024-08-04] VITALS: Ht 172.7 cm; Wt 200.0 kg
[2024-08-04 21:24] LABS: Basophils # (auto) 0.1 10 ^3/uL (0-0.2); Basophils % (auto) 1.1 % (0.0-2.0); Eosinophils # (auto) 0.3 10 ^3/uL (0-0.8); Eosinophils % (auto) 3.2 % (0.0-7.0); Hematocrit 37.4 % (41.0-53.0); Hemoglobin 12.9 g/dL (13.5-17.5); Lymphocytes # (auto) 1.8 10 ^3/uL (0.4-5.4); Lymphocytes % (auto) 18.7 % (10.0-50.0); Mean Corpuscular Hgb Conc. 34.6 g/dL (32.0-36.0); Mean Corpuscular Volume 89.7 fL (80.0-100.0); Monocytes # (auto) 0.7 10 ^3/uL (0-1.3); Monocytes % (auto) 7.1 % (0.0-12.0); Neutrophils # (auto) 6.8 10 ^3/uL (1.6-8.6); Neutrophils % (auto) 69.9 % (37.0-80.0); Nucleated Red Blood Cells % 0.1 %; Platelet Count (auto) 300 10^3/uL (140-450); Red Blood Cells 4.17 10^6/uL (4.5-5.90); Red Cell Distribution Width 13.6 % (11.8-14.3); White Blood Cell 9.7 10^3/uL (4.4-10.8)
[2024-08-04 21:55] LABS: Chloride 103 mmol/L (98-107); Potassium 4.3 mmol/L (3.5-5.1); Sodium 136 mmol/L (136-145)
[2024-08-04 21:56] LABS: Anion Gap 10 (5-15); Carbon Dioxide 23 mmol/L (20-30)
[2024-08-04 21:57] LABS: Calcium 9.7 mg/dL (8.7-10.4)
[2024-08-04 22:01] LABS: Blood Urea Nitrogen 28 mg/dL (9-23); Glucose 144 mg/dL (74-106)
[2024-08-05 04:58] VITALS: BP 109/63; PULSE 90; RESP 20; TEMP 99; O2SAT 96
== END 2024-08-06 08:22 | disposition left against medical advice (07) ==
LOC: ER 20:28
DX: R42 Dizziness and giddiness (principal); R53.1 Weakness; R07.9 Chest pain, unspecified; J44.9 Chronic obstructive pulmonary disease, unspecified; E11.22 Type 2 diabetes mellitus with diabetic chronic kidney disease; I13.0 Hypertensive heart and chronic kidney disease with heart failure and stage 1 through stage 4 chronic kidney disease, or unspecified chronic kidney disease; N18.9 Chronic kidney disease, unspecified; I50.9 Heart failure, unspecified; F17.210 Nicotine dependence, cigarettes, uncomplicated; F12.10 Cannabis abuse, uncomplicated; F15.10 Other stimulant abuse, uncomplicated
CPT/HCPCS: 36415; 80048; 84484; 85025; 93005